=== PATIENT | male | born 1940 | race Caucasian/White ===

== ENCOUNTER → 2017-12-12 | Outpatient (CLI) | payer OTHER ==
[~2017-12-12] VITALS: Ht 190.5 cm; Wt 90.7 kg
[~2017-12-12] MED LIST: AMLODIPINE BESY10 MG PO; ASPIR 8181 MG PO; CRESTOR10 MG PO; IBUPROFEN 800800 MG PO; LEVAQUIN 750 M750 MG PO; LIPITOR80 MG PO; LISINOPRIL-HCT1 EAC1 PO; LISINOPRIL-HCT1 EAC2 PO; LORTAB 10 MG-3473 ML PO; MULTIVITAMINS1 EAC7 PO; OMEGA-3 FISH1200 MG PO; OMEPRAZOLE40 MG PO; SERTRALINE HCL100 MG PO; VITAMIN C1000 MG PO; VITAMIN D5000 UNIT PO; ZETIA10 MG PO
--- NOTE | ~2017-12-12 | PATH ---
[facility] [place] [address] PATHOLOGY RPT PROCEDURE Name: FAVIO ESPINO Room #: REG PEG Henriquez.#: [id number] Admission: 12/12/17 Date of : 36 Discharge: Report #: [id number] Path Case #: [id number] [facility] Accession Number: [id number] . 01 Material submitted: . PART A: BIOPSY OF SMALL BOWEL R/O SPRUE HX OF DIARRHEA PART B: BIOPSY OF DUODENAL THICKENED FOLD PART C: BIOPSY OF BARRETTS ESOPHAGUS . 01 Clinical history: . Pre-Op DX: Brandt's, diarrhea Post-Op DX: Brandt's, hiatal hernia, thickened fold . 02 Diagnosis: A. Small bowel mucosa, small bowel rule out sprue, endoscopic biopsy: - No diagnostic abnormalities present. - Negative for villous blunting or increase in intraepithelial lymphocytes. . B. Small bowel mucosa, duodenal thickened fold, endoscopic biopsy: - Tubular adenoma. - Negative for high grade dysplasia. . C. 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 - Negative for dysplasia. LBQ/12/13/2017 . 02 Comment: Part B: This part of the case was co-reviewed by Dr. Berna Farrell who concurs with my diagnosis. . Part C: The above diagnosis of Brandt's esophagus is made due to presence of intestinal metaplasia and with the assumption that the biopsies were obtained from the columnar mucosa in the distal esophagus located at least 1 cm proximal to the top of the gastric folds as per the 2016 ACG guidelines. (IUV/db; 12/13/17) . 02 Electronically signed: . Dayana Hamilton MD, Pathologist NPI- [id number] . 01 Gross description: . A. Received in formalin labeled "Favio Espino BX of small bowel, rule out sprue," are 5 segments of de la cruz soft tissue measuring 1.3 x 0.6 x 0.2 cm in aggregate dimensions and ranging from 0.2 to 0.4 cm in maximum [address] [address] PATHOLOGY RPT PROCEDURE Name: FAVIO ESPINO Room #: REG CLI Rolly#: [id number] Admission: 12/12/17 Date of : 36 Discharge: Report #: [id number] Path Case #: [id number] dimension. The specimen is submitted entirely in cassette A1. . B. Received in formalin labeled "Favio Espino BX of duodenal thickened fold," are 5 segments of de la cruz soft tissue measuring 1.3 x 0.4 x 0.3 cm in aggregate dimensions and ranging from 0.2 to 0.4 cm in maximum dimension. The specimen is submitted entirely in cassette B1. . C. Received in formalin labeled "Favio Espino BX of Brandt's esophagus," are 2 segments of de la cruz soft tissue measuring 0.8 x 0.3 x 0.2 cm in aggregate dimensions and measuring 0.4 cm each in maximum dimension. The specimen is submitted entirely in cassette C1. (TSD; 12/12/2017) TOB/TOB . 02 Pathologist provided ICD-10: D13.2, K22.70, R19.7 . 02 CPT . 280020, 357304, 577086 Performed at: [address], [place] [id number] MD Julio Cesar Packer MD Phone: [phone] Performed at: [address] [id number] MD Dayana Hamilton MD Phone: [phone]
--- NOTE | ~2017-12-12 | P ---
[facility] [place] [address] PROCEDURE REPORT Name: KENZIEREX Grge Room #: REG [facility]#: [id number] Admission: 12/12/17 Attend Phys: Marcos Yang Discharge: Date of : 36 Report #: [id number] THIS REPORT FOR: //name// CC: Marcos Auguste [facility] physician/PCP José Galdamez III, MD DATE OF SERVICE: 12/12/2017 PROCEDURE PERFORMED: Upper endoscopy with biopsies. HISTORY OF PRESENT ILLNESS: The patient is a 77-year-old male with a history of Brandt esophagus, gastroesophageal reflux disease, on daily PPI therapy. Denies any dysphagia or odynophagia. Here for routine followup biopsies of Brandt esophagus. He also has a history of diarrhea and was evaluated by myself in the office on 11/20/2017. He was started on Questran for possible bile salt diarrhea. This has improved slightly. Plan is for biopsies to rule out celiac sprue as well today. DESCRIPTION OF PROCEDURE: The risks and benefits of the procedure were explained to the patient, those risks including but not limited to bleeding, perforation, the risk of sedation. He understood these risks and gave informed consent. Sedation was given using propofol per Anesthesia. Next, using a standard Olympus upper endoscope, the scope was placed in the patient's mouth and advanced under direct vision through the esophagus, stomach and into the second portion of the duodenum. The larynx was normal in appearance. The upper and mid esophagus was normal. In the distal esophagus, there was approximately a 5 cm segment of Brandt's. Several biopsies were obtained. No evidence of esophagitis. Upon entering the stomach, a small hiatal hernia was noted. Overall, the gastric mucosa was normal. The pylorus was normal and patent. The duodenal bulb and first portion were normal. In the second portion, there was a thickened fold of approximately 6 mm. Biopsies were obtained to rule out possible adenomatous tissue. I also tattooed the edges. Also, random biopsies of normal appearing duodenum were obtained to rule out the possibility of celiac sprue. The scope was then withdrawn and the procedure terminated. The patient tolerated the procedure well. IMPRESSION: 1. Brandt esophagus. 2. Hiatal hernia. 3. Thickened fold in the duodenum. 4. Otherwise, normal upper endoscopy. RECOMMENDATIONS: 1. Await biopsy results. [address] [address] PROCEDURE REPORT Name: REX ESPINO Room #: REG [facility] Rolly#: [id number] Admission: 12/12/17 Attend Phys: Marcos Yang Discharge: Date of : 36 Report #: [id number] 2. Continue PPI therapy. Thank you for allowing me to participate in his care. <ELECTRONICALLY SIGNED> By: Marcos Auguste MD 12/14/17 1016 1055 0441 Marcos Auguste MD /nt
== END | disposition home or self-care (01) ==
LOC: GI 09:10
DX: D13.2 Benign neoplasm of duodenum (principal); K44.9 Diaphragmatic hernia without obstruction or gangrene; K63.89 Other specified diseases of intestine; K21.9 Gastro-esophageal reflux disease without esophagitis; F41.9 Anxiety disorder, unspecified; F32.9 Major depressive disorder, single episode, unspecified; I10 Essential (primary) hypertension; E78.5 Hyperlipidemia, unspecified; Z87.19 Personal history of other diseases of the digestive system; Z88.8 Allergy status to other drugs, medicaments and biological substances; Z79.899 Other long term (current) drug therapy; Z85.46 Personal history of malignant neoplasm of prostate; Z90.89 Acquired absence of other organs; Z90.49 Acquired absence of other specified parts of digestive tract; Z98.890 Other specified postprocedural states
CPT/HCPCS: 62110; 62900

== ENCOUNTER → 2018-06-19 | Outpatient (CLI) | payer OTHER ==
[~2018-06-19] VITALS: Ht 190.5 cm; Wt 90.7 kg
--- NOTE | ~2018-06-19 | P ---
[facility] [place] [address] PROCEDURE REPORT Name: KENZIEREX [id number] Admission: 06/19/18 Attend Phys: Marcos Yang Discharge: Date of : 36 Report #: [id number] THIS REPORT FOR: //name// CC: Marcos Galdamez III, MD DATE OF SERVICE: 06/19/2018 PROCEDURE PERFORMED: Upper endoscopy with biopsies. HISTORY OF PRESENT ILLNESS: The patient is an 78-year-old male with a history of Brandt's esophagus who underwent an upper endoscopy by myself on 12/12/2017. He is on daily PPI therapy. Biopsies for Brandt's esophagus at that time showed Brandt's with no dysplasia. Small bowel random biopsies were negative for celiac sprue; however, the patient did have a thickened fold in the second portion of the duodenum and a biopsy of this showed tubular adenoma, negative for high-grade dysplasia. I did tattoo the area at that time. The patient is here for a 6-month followup. He denies any symptoms currently. DESCRIPTION OF PROCEDURE: The risks and benefits of the procedure were explained to the patient, those risks including but not limited to bleeding, perforation and the risk of sedation. He understood these risks and gave informed consent. Sedation was given using propofol per anesthesia. Next, using Olympus upper endoscope, the scope was placed in the patient's mouth and advanced under direct vision through the esophagus, stomach and into the second portion of the duodenum. The larynx was normal in appearance. The upper and mid esophagus was normal. In the distal esophagus, once again a segment of Brandt's esophagus was noted. No repeat biopsies were obtained at this time. No evidence of esophagitis. Upon entering the stomach, a small hiatal hernia was once again noted. Overall, the gastric mucosa was normal. The pylorus was normal and patent. The duodenal bulb and first portion were normal. In the second portion, the previous tattoo site was noted as well as the area of thickened fold, which was a tubular adenoma. I proceeded with removing any adenomatous tissue in this area, which was approximately 6 mm in size. At this point, the scope was then withdrawn and the procedure terminated. The patient tolerated the procedure well. IMPRESSION: 1. Duodenal adenomatous mucosa as described above, status post removal by cold forceps today. 2. Segment of Brandt's esophagus. 3. Hiatal hernia. RECOMMENDATIONS: 1. Await biopsy results. [address] [address] PROCEDURE REPORT Name: REX ESPINO Room #: REG CL Rolly#: [id number] Admission: 06/19/18 Attend Phys: Marcos Yang Discharge: Date of : 36 Report #: [id number] 2. We will likely recommend repeat upper endoscopy in 6 months to a year. Thank you for allowing me to participate in his care. By: 1017 99 Marcos Auguste MD /janice
--- NOTE | 2018-06-19 12:43 | EKG ---
[address] [address] ELECTROCARDIOGRAM REPORT Name: REX ESPINO Room #: REG PEG Lo[place]on#: [id number] Admission: 06/19/18 Attend Phys: Marcos Yang Discharge: Date of : 36 Report #: [id number] THIS REPORT FOR: //name// 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: ORCÍO : 1940 Requested By: Celia eH Order Number: [id number] MD: Navi Ruelas Measurements Intervals Hammond Rate: 58 P: -9 MI: 215 QRS: -9 QRSD: 91 T: 3 QT: 429 QTc: 422 Interpretive Statements Sinus rhythm Atrial premature complexes Borderline prolonged MI interval Abnormal R-wave progression, early transition Compared to ECG 05/22/2012 09:31:12 Atrial premature complex(es) now present Sinus bradycardia no longer present Left ventricular hypertrophy no longer present Electronically Signed On 06-19-2018 12:42:46 [employer] by Navi Ruelas [email or web address] <ELECTRONICALLY SIGNED> By: Navi Ruelas MD 06/19/18 1242 0844 0844 Navi Ruelas MD /EPI
--- NOTE | 2018-06-20 16:06 | PATH ---
[facility] [address] [place] [address] PATHOLOGY RPT PROCEDURE Name: KENZIEFAVIO Room #: REG [facility] [place].#: [id number] Admission: 06/19/18 Date of : 36 Discharge: Report #: [id number] Path Case #: [id number] L[facility] Accession Number: [id number] . 01 Material submitted: . BX POLYP 2ND PORTION DUODENUM . 01 Clinical history: . Pre-OP DX: Hx Brandt's esophagus Post-OP DX: Adenomatous polyp duodenum, Brandt's . 02 Diagnosis: Polyp, second portion duodenum, endoscopic biopsy: - Tubular adenoma present in multiple fragments sampled. - Negative for high grade dysplasia (please see comment). LBQ/06/20/2018 . 02 Comment: Dr. Berna Farrell has seen a major account representative slide of this case and concurs with my diagnosis. (IUV/db; 06/20/2018) . 02 Electronically signed: . Dayana Hamilton MD, Pathologist NPI- [id number] . 01 Gross description: . Received in formalin labeled "Favio Espino, BX polyp 2nd portion duodenum," are multiple segments of de la cruz soft tissue measuring 1.9 x 0.3 x 0.1 cm in aggregate dimensions. The specimen is filtered and entirely submitted in cassette A1. (TSD; 06/19/2018) TOB/TOB . 02 Pathologist provided ICD-10: D13.2 . 02 CPT . 692801 Specimen Comment: A courtesy copy of this report has been sent to Specimen Comment: [phone], . Specimen Comment: Report sent to / DR SIEGEL Performed at: [address] [id number] MD Julio Cesar Packer MD Phone: [phone] Performed at: [address] [address] PATHOLOGY RPT PROCEDURE Name: FAVIO ESPINO Room #: REG [facility] Pham.#: [id number] Admission: 06/19/18 Date of : 36 Discharge: Report #: [id number] Path Case #: [id number] [address] [id number] MD Dayana Hamilton MD Phone: [phone]
== END | disposition home or self-care (01) ==
LOC: GI 06-05 10:54
DX: D13.2 Benign neoplasm of duodenum (principal); K22.70 Barrett's esophagus without dysplasia; K44.9 Diaphragmatic hernia without obstruction or gangrene; F41.9 Anxiety disorder, unspecified; F32.9 Major depressive disorder, single episode, unspecified; I10 Essential (primary) hypertension; E11.9 Type 2 diabetes mellitus without complications; K21.9 Gastro-esophageal reflux disease without esophagitis; Z85.46 Personal history of malignant neoplasm of prostate; Z98.890 Other specified postprocedural states; Z90.49 Acquired absence of other specified parts of digestive tract; E78.5 Hyperlipidemia, unspecified; Z88.1 Allergy status to other antibiotic agents; Z88.8 Allergy status to other drugs, medicaments and biological substances; Z79.82 Long term (current) use of aspirin; Z79.899 Other long term (current) drug therapy
CPT/HCPCS: 62110; 62900

== ENCOUNTER → 2019-06-18 | Outpatient (CLI) | payer OTHER ==
[~2019-06-18] VITALS: Ht 190.5 cm; Wt 90.7 kg
--- NOTE | ~2019-06-18 | P ---
[facility] [place] [address] PROCEDURE REPORT Name: REX ESPINO [id number] Admission: 06/18/19 Attend Phys: aMrcos Yang Discharge: Date of : 38 Report #: [id number] THIS REPORT FOR: cc: José Galdamez III, MD, III, Thomas D. MD McElhinney, Christian C. MD ~ CC: Marcos Galdamez III, MD DATE OF SERVICE: 06/18/2019 PROCEDURE PERFORMED: Upper endoscopy with biopsies and endoclip placement. HISTORY OF PRESENT ILLNESS: The patient is an 79-year-old male with a history of gastroesophageal reflux disease as well as Brandt's esophagus, who also has a known history of adenomatous polyp in his second portion of the duodenum. This has been removed by biopsy forceps in the past and treated with APC cautery on several occasions. His last biopsy was performed on 12/11/2018. Once again, the areas showed tubular adenoma without high-grade dysplasia. Biopsies of Brandt's showed no dysplasia as well. He is here for a 6-month followup. He denies any symptoms. He is on PPI therapy. He denies any dysphagia. DESCRIPTION OF PROCEDURE: The risks and benefits of the procedure were explained to the patient, those risks including but not limited to bleeding, perforation, the risk of sedation. He understood these risks and gave informed consent. Sedation was given using propofol per anesthesia. Next, using a standard Olympus upper endoscope, the scope was placed in the patient's mouth and advanced under direct vision through the esophagus, stomach and into the second portion of the duodenum. The larynx was normal in appearance. The upper and mid esophagus was normal. In the distal esophagus, a segment of Brandt's was once again noted. Upon entering the stomach, a small hiatal hernia was noted. Overall, the gastric mucosa was normal. The pylorus was normal and patent. The duodenal bulb and first portion were normal. In the second portion, the previous tattoo of the previous polyp site was noted. No obvious polyp tissue was seen. Several biopsies were obtained. There was a small amount of bleeding. Two Endoclips were placed. No further bleeding was noted. The scope was then withdrawn and the procedure terminated. The patient tolerated the procedure well. IMPRESSION: 1. Brandt's esophagus. 2. History of duodenal adenoma. 3. Hiatal hernia. [address] [address] PROCEDURE REPORT Name: REX ESPINO Room #: REG CLI Rolly#: [id number] Admission: 06/18/19 Attend Phys: Marcos Yang Discharge: Date of : 36 Report #: [id number] RECOMMENDATIONS: 1. Await biopsy results. 2. If biopsies show recurrent adenoma, consider repeat upper endoscopy in 6-12 months. Thank you for allowing me to participate in his care. By: 1101 1124 Marcos Auguste MD /janice
--- NOTE | 2019-06-19 15:08 | PATH ---
[facility] [address] [place] [address] PATHOLOGY RPT PROCEDURE Name: FAVIO ESPINO [facility] #: [facility] [id number] Admission: 06/18/19 Date of : 36 Discharge: Report #: [id number] Path Case #: [id number] LCA Accession Number: [id number] . 01 Material submitted: . duodenum - BX OF DUODENAL ADENOMA SITE . 01 Clinical history: . History of duodenal adenoma . 02 Diagnosis: Duodenum, "biopsy of duodenum adenoma site": - Fragments of benign duodenal mucosa with normal villous pattern with reactive changes. - There is no evidence of residual adenoma, atypia or malignancy. . (SHA:mmmarya; 06/19/2019) QL 06/19/2019 1346 Local . 02 Electronically signed: . Ventura Cook MD, Pathologist NPI- [id number] . 01 Gross description: . The specimen is received in formalin, labeled "Favio Espino", "biopsy of duodenal adenoma site". Received are multiple segments of spongy, pale de la cruz soft tissue ranging in size from 0.1 cm to 0.2 cm. The specimen is entirely submitted in cassette A1.(SNA; 06/18/2019) SARAH/KOMAL 06/18/2019 1814 Local . 02 Pathologist provided ICD-10: Z86.018 . 02 CPT . 441273 Specimen Comment: A courtesy copy of this report has been sent to [phone] Specimen Comment: [phone] Specimen Comment: Report sent to and Performed at: [address], [place] [id number] MD Julio Cesar Packer MD Phone: [phone] Performed at: [address] [id number] MD Dayana Hamilton MD Phone: [phone]
== END | disposition home or self-care (01) ==
LOC: GI 08:22
DX: K22.70 Barrett's esophagus without dysplasia (principal); K44.9 Diaphragmatic hernia without obstruction or gangrene; Z86.018 Personal history of other benign neoplasm; K21.9 Gastro-esophageal reflux disease without esophagitis; I10 Essential (primary) hypertension; E78.5 Hyperlipidemia, unspecified; F32.9 Major depressive disorder, single episode, unspecified; F41.9 Anxiety disorder, unspecified; Z85.46 Personal history of malignant neoplasm of prostate; Z90.49 Acquired absence of other specified parts of digestive tract; Z98.890 Other specified postprocedural states
CPT/HCPCS: 62110; 62900